=== PATIENT | male | born 1955 | race Caucasian/White ===

== ENCOUNTER 2019-05-03 21:54 | Inpatient (IN) | payer OTHER ==
[~2019-05-03] VITALS: Ht 188 cm; Wt 139.8 kg
[2019-05-03 21:54] VITALS: BP 113/68
[~2019-05-03 21:54] MED LIST: APAP650 PO; BAYER CHEWABLE81 MG PO; BENADRYL25 MG PO; CANASA1000 MG PO; CENTRUM SILVER1 EAC4 PO; COLACE 100 MG100 MG PO; CRESTOR20 MG PO; EFFIENT10 MG PO; FERREX 150150 MG PO; GLUCOSAMINE &1 EAC1 PO; GLYBURIDE 1.21.25 MG PO; LISINOPRIL20 MG PO; LOPRESSOR50 PO; METFORMIN HCL500 MG PO; PAIN RELIEVER325 MG PO; PROTONIX40 M1 PO; TYLENOL325 MG PO
[2019-05-03 23:12] LABS: BE(vivo) 3.7 mmol/L (-2 to +3); HCO3 33.2 mmol/L (22.0-26.0); PO2 70.6 mmHg (80.0-100.0); sO2 92.2 % (92.0-98.0)
[2019-05-03 23:13] LABS: PCO2 67.7 mmHg (35.0-45.0); pH 7.308 (7.360-7.450)
[2019-05-03 23:34] LABS: HEMATOCRIT 59.7 % (42.0-52.0); HEMOGLOBIN 18.7 gm/dL (14.0-18.0); MCH 29.4 pg (26.0-34.0); MCHC 31.4 g/dL (28.0-37.0); MCV 93.8 fL (80.0-100.0); PLATELET COUNT 203 thou/uL (150-400); RBC 6.36 mil/uL (4.50-6.00); RDW 16.6 % (10.5-14.5); WBC 7.1 thou/uL (4.0-11.0)
[2019-05-03 23:35] LABS: ANION GAP 3 mmol/L (7-16); BUN 13 mg/dL (7-18); CALCIUM 8.6 mg/dL (8.5-10.1); CHLORIDE 102 mmol/L (98-107); CO2 34 mmol/L (21-32); CREATININE 1.1 mg/dL (0.7-1.3); GLUCOSE 110 mg/dL (74-106); POTASSIUM 4.8 mmol/L (3.5-5.1); SODIUM 139 mmol/L (136-145)
[2019-05-03 23:44] LABS: TROPONIN-I <0.06 ng/mL (<0.06)
[2019-05-04] VITALS (20 sets, daily range): BP systolic 91–133; BP diastolic 43–85
[2019-05-04 00:25] LABS: ABSOLUTE NEUTROPHILS 4.7 thou/uL (1.4-8.2)
[2019-05-04 00:26] LABS: ANISOCYTOSIS 1+; LARGE PLATELETS FEW; PLATELET ESTIMATE NORMAL; POIKILOCYTOSIS 1+; POLYCHROMASIA 1+
[2019-05-04 02:48] LABS: BE(vivo) 2.1 mmol/L (-2 to +3); HCO3 32.1 mmol/L (22.0-26.0); PO2 78.8 mmHg (80.0-100.0); sO2 93.7 % (92.0-98.0)
[2019-05-04 02:50] LABS: PCO2 70.1 mmHg (35.0-45.0); pH 7.278 (7.360-7.450)
[2019-05-04] MEDS ORDERED: GLUCOPHAGE500 MG PO (03:27)
[2019-05-04] MEDS ORDERED: OMEPRAZOLE40 MG PO (03:27)
[2019-05-04] MEDS ORDERED: LOPRESSOR50 MG PO (03:27)
[2019-05-04] MEDS ORDERED: FENOFIBRATE160 MG PO (03:27)
[2019-05-04] MEDS ORDERED: PROSCAR 5MG TABL5 M1 PO (03:28)
[2019-05-04 03:33] LABS: ALBUMIN 3.1 g/dL (3.4-5.0); DIRECT BILIRUBIN 0.1 mg/dL (<0.1-0.2); TOTAL BILIRUBIN 0.6 mg/dL (<0.1-1.0); TOTAL PROTEIN 6.5 g/dL (6.4-8.2)
--- NOTE | 2019-05-04 03:35 | NUR ---
DR MOLINA CONTACTED BY ER, TALKED WITH DR MONTENEGRO, AWARE OF PT STATUS REQUESTS THAT BIPAP SETTINGS REMAIN THE SAME, WILL REEVALUATE IN THE AM
[2019-05-04] MEDS ORDERED: PLAVIX 75 MG TA75 MG PO (04:41)
[2019-05-04] MEDS ORDERED: GLYBURIDE 5 MG T5 M1 PO (04:43)
[2019-05-04] MEDS ORDERED: COQ-10100 MG PO (04:43)
[2019-05-04] MEDS ORDERED: ASPIR 8181 M1 PO (04:43)
[2019-05-04] MEDS ORDERED: LIPITOR 20 MG T20 M1 PO (04:44)
[2019-05-04] MEDS ORDERED: FLOMAX0.4 MG PO (04:45)
[2019-05-04 05:31] LABS: HEMATOCRIT 59.1 % (42.0-52.0); HEMOGLOBIN 18.4 gm/dL (14.0-18.0); MCH 29.4 pg (26.0-34.0); MCHC 31.2 g/dL (28.0-37.0); MCV 94.4 fL (80.0-100.0); RBC 6.26 mil/uL (4.50-6.00); WBC 6.5 thou/uL (4.0-11.0)
[2019-05-04 05:54] LABS: CALCIUM 8.6 mg/dL (8.5-10.1); CREATININE 0.7 mg/dL (0.7-1.3); POTASSIUM 5.2 mmol/L (3.5-5.1)
[2019-05-04 06:15] LABS: CHOLESTEROL 189 mg/dL (<200); HDL CHOLESTEROL 25 mg/dL (>40); LDL CHOLESTEROL 136 mg/dL (<100); TC:HDL 7.6 Ratio (Not establshd); TRIGLYCERIDE 143 mg/dL (<150); VLDL 29 mg/dL (<40)
[2019-05-04 06:17] LABS: SERUM ASSESSMENT Clear
--- NOTE | 2019-05-04 07:29 | NUR ---
0348 PT ADMITTED TO ROOM 246 FROM ED. PT TOLERATING BIPAP WELL, RESPS EVEN AND UNLABORED. PT IS ABLE TO MOVE SELF OVER TO HOSPITAL BED AND ANSWER ADMISSION QUESTIONAIRRE. REPORTS THAT HE HAS BEEN SICK FOR SOME TIME AND HIS MOTHER FORCED HIM TO COME. FACE IS HAIR WITH CYANOTIC LIPS. VALENZUELA PLACED TO DD FOR ACCURATE I/O AND TO RESERVE OXYGEN PT WAS UNABLE TO USE URINAL AND TOO DYSPNEIC TO TOLERATE STANDING AT THE BEDSIDE. 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 VS HAVE REMAINED STABLE. SEE ASSESSMENT FOR FURTHER DETAIL.
--- NOTE | 2019-05-04 08:16 | EKG ---
[facility] [address] [place] [address] ELECTROCARDIOGRAM REPORT Name: NITA VALENTE Room #: 246-P ADM IN M.R.#: [id number] Admission: 05/04/19 Attend Phys: Javan Gordon MD Discharge: Date of : 59 Report #: [id number] THIS REPORT FOR: cc: Sanket Vaz MD, Stephen L. MD Couchonnal, Luis F. 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
--- NOTE | 2019-05-04 08:49 | NUR ---
navdeep notified that pt insurance is out of net work with no out of network benefits. cm visited with pt at bedside. he is up with bipap on, he does try to talk with bipap on. intro to cm and tammyp. he reported " lives alone in house with stair [address] with handrail x 1. independent. manages own medication, drives, only check bs 1x week. helps his mom out. retired last week of jan because i was not feeling well and was going to retire in february any way. got my insurance through [employer], i don't think any hospital is covered. i have tried to change insurance but was told cant change insurance until closer to next year. no past home health or rehab"/reny. education on possible have to transfer to another hospital rt insurance, [facility]. if stable to md then MD will do that.
--- NOTE | 2019-05-04 12:22 | NUR ---
Assumed care at 0700. Spoke with Dr. Chavira in regards to PT's respiratory status. PT reported that he has had chills and aches at home but no reported fever. 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 Nurse asked Dr. Chavira if PT would be appropriate for coronavirus testing. Dr. Chavira consulted Dr. Lockhart of infectious disease. Nurse spoke with Dr. Lockhart and notified him of PT and symptoms. He stated he would be by later to assess the PT. Nurse will continue to monitor.
[2019-05-04 17:54] LABS: BE(vivo) -0.3 mmol/L (-2 to +3); HCO3 26.8 mmol/L (22.0-26.0); PCO2 51.5 mmHg (35.0-45.0); PO2 124.7 mmHg (80.0-100.0); pH 7.334 (7.360-7.450); sO2 98.2 % (92.0-98.0)
--- NOTE | 2019-05-04 18:15 | NUR ---
Spoke with PT's mother on the phone and gave her an update on PT condition. Nurse notified mother that PT may transfer out to a [facility] hospital due to insurance. She verbalized understanding but requested that the PT not be transferred to [facility]. PT is also aware of possible transfer out. Nurse will continue to monitor.
--- NOTE | 2019-05-04 23:08 | NUR ---
PT GOT ACCEPTED TO [facility]. ACCEPTING PHYSICIAN DR. BALDEV HOLT. REPORT GIVEN TO ADAM FROM THE [facility]. AMBULANCE NOTIFIED FOR PT TRANSFER. PT BEING TRANSFERED TO [facility]. PT MOTHER ABIGAIL VALENTE NOTIFIED ABOUT PT TRANSFER. PT ALERT AND ORIENTED. PT AWARE OF HIS TRANSFER AND SIGNED CONSENT FOR HIS TRANSFER TO [facility].
--- NOTE | 2019-05-04 23:38 | NUR ---
PT DISCHARGED AT 2335 TO [facility]. ADAM FROM THE [facility] NOTIFIED UPON PT LEAVING THE HOSPITAL. DR. WORKMAN NOTIFIED ON PT DISCHARGE.
[2019-05-05 01:07] LABS: GLYCOHEMOGLOBIN (HGB A1C) 6.6 % (4.8-5.6)
== END 2019-05-04 23:35 | disposition short-term general hospital (02) | DRG 189 ==
LOC: ER 21:54 → ICU 05-04 03:05 → EROBS 05-04 03:05 → ICU 05-04 03:29
PROVIDERS: Emergency Medicine Emergency Medical Services; Nurse Practitioner Family; Pediatrics; ADMIT Hospitalist
PROC: 5A09357 Assistance with Respiratory Ventilation, Less than 24 Consecutive Hours, Continuous Positive Airway Pressure (ICD-10-PCS; principal; 2019-05-04)
DX: J96.02 Acute respiratory failure with hypercapnia (principal); J44.1 Chronic obstructive pulmonary disease with (acute) exacerbation; E11.9 Type 2 diabetes mellitus without complications; I25.10 Atherosclerotic heart disease of native coronary artery without angina pectoris; E78.5 Hyperlipidemia, unspecified; I10 Essential (primary) hypertension; J96.01 Acute respiratory failure with hypoxia; E87.5 Hyperkalemia; D75.1 Secondary polycythemia; Z95.5 Presence of coronary angioplasty implant and graft; I25.2 Old myocardial infarction; Z87.891 Personal history of nicotine dependence
CPT/HCPCS: 10078